=== PATIENT | female | born 1975 | race Two or more races ===

== ENCOUNTER 2021-05-06 23:59 | Emergency (ER) | payer SELFPAY ==
[~2021-05-06] VITALS: Ht 157.5 cm; Wt 90.7 kg
[2021-05-06 23:59] VITALS: BP 143/81
[2021-05-07 01:31] LABS: Urine Bacteria NONE SEEN /hpf (None Seen); Urine Blood Negative /uL (Negative); Urine Mucus FEW (None Seen); Urine Specific Gravity 1.033 (1.001-1.035); Urine WBC 2 /hpf (0 - 5)
== END 2021-05-07 02:18 | disposition left against medical advice (07) ==
LOC: ER 23:59
DX: R10.9 Unspecified abdominal pain (principal); R11.2 Nausea with vomiting, unspecified; Z53.21 Procedure and treatment not carried out due to patient leaving prior to being seen by health care provider
CPT/HCPCS: 81001